=== PATIENT | female | born 1970 | race Caucasian/White ===

== ENCOUNTER → 2019-03-14 | Outpatient (CLI) | payer OTHER ==
[2019-03-14 19:20] LABS: Folate, Serum >24.0 ng/mL; Iron Saturation 4.45 (12.00-45.00)
== END | disposition home or self-care (01) ==
LOC: LABWHC1 13:17
PROVIDERS: ATTEND Psychiatry & Neurology Neurology
DX: G47.61 Periodic limb movement disorder (principal); R43.0 Anosmia; G31.84 Mild cognitive impairment of uncertain or unknown etiology
CPT/HCPCS: 36415; 82085; 82728; 82746; 83540; 83550; 84207

== ENCOUNTER → 2019-03-18 | Outpatient (CLI) | payer OTHER ==
--- NOTE | 2019-03-19 02:12 | MR ---
EXAMINATION TYPE: MR brain wo/w con DATE OF EXAM: 03/18/2019 COMPARISON: None HISTORY: Loss of taste/smell TECHNIQUE: Multiplanar, multisequence images of the brain and brainstem is performed without and with IV contras t, utilizing 6.5 mL intravenous Gadavist . FINDINGS: Ventricles have normal size. There is no mass effect nor midline shift. There is no sign of intracran ial hemorrhage. Bro-white matter structures have fairly normal signal pattern. There is no evidence of cerebral edema. There is no evidence of cortical infarct. Corpus callosum appears normal. Brainste m appears intact. Sella turcica appears normal. Optic chiasm appears normal. There is hypertrophic mu cosal thickening in the nasopharynx. There is no pathologic enhancement. There is normal contrast opa cification of the venous sinuses. There is no evidence of posterior fossa mass. IMPRESSION: Hypertrophic changes in the nasal turbinates. Otherwise negative MR scan of the brain.
== END | disposition home or self-care (01) ==
LOC: RADMRIMAIN 03-14 13:02
PROVIDERS: ATTEND Otolaryngology
DX: J34.3 Hypertrophy of nasal turbinates (principal); R43.8 Other disturbances of smell and taste
CPT/HCPCS: 70553; A9585

== ENCOUNTER → 2021-01-06 | Outpatient (CLI) | payer OTHER ==
[2021-01-06 18:57] LABS: African American GFR (CKD) >90 (>60 ml/min/1.73 sqM); Blood Urea Nitrogen 16 mg/dL (7-17); Non-African American GFR(CKD) >90 (>60 ml/min/1.73 sqM)
--- NOTE | 2021-01-06 22:34 | CT ---
EXAMINATION TYPE: CT brain wo/w con DATE OF EXAM: 01/06/2021 COMPARISON: MRI brain 03/18/2019 INDICATION: Diplopia, blurry vision, dry eye DLP: 2108.4 mGycm, Automated exposure control for dose reduction was used. CONTRAST: 100 mL [id number]-300 CT of the brain is performed utilizing 3 mm thick sections through the posterior fossa and 3 mm thick sections through the remaining calvarium. Study is performed within 24 hours [facility]. No abnormal hyperdensity is present to suggest an acute intracranial hemorrhage. No mass lesion is evident. No acute infarcts are evident. Ventricles and sulci are appropriate for the patient age. Paranasal sinuses and mastoid air cells within the [id number] are clear. No abnormal enhancement is evident. Orbits appear symmetrical. Intraconal and extraconal fat appears unremarkable. Optic nerves appear normal. The occipital regions are normal. IMPRESSIONS: 1. Normal pre and postcontrast CT brain
== END | disposition home or self-care (01) ==
LOC: RADCTMAIN 17:39
PROVIDERS: ATTEND Ophthalmology
DX: H53.2 Diplopia (principal)
CPT/HCPCS: 82565; 84520; 70470; 36415; Q9967